=== PATIENT | male | born 1960 | race Caucasian/White ===

== ENCOUNTER 2023-04-25 20:42 | Emergency (ER) | payer OTHER, SELFPAY ==
[2023-04-25 20:45] VITALS: BP 99/68; PULSE 83; RESP 24; TEMP 36.3; O2SAT 98; BMI 20.9
--- NOTE | 2023-04-25 20:58 | XR_ITS ---
The [address] [address] Patient Name: MARIANNA HEALY MRN: [id number] date: 1960 Sex: M Assigned Patient Location: ER Current Patient Location: ER Accession/Order Number: [id number] Exam Date: 04/25/2023 21:40 Report Date: 04/25/2023 22:10 At the request of: MARKELL VENTURA Procedure: XR chest 1V Delete EXAMINATION:XR chest 1V INDICATION:hypoxemia COMPARISON:06/07/2021 TECHNIQUE:A single frontal view of the chest is submitted. FINDINGS: The cardiac silhouette is enlarged. A left-sided pacemaker is in place. There is a right-sided vascular line present with the tip overlying the cavoatrial junction. The pulmonary vascularity is within normal limits. There are small bilateral pleural effusions. There is nonspecific airspace density in the right perihilar chest which could be sequela to pneumonia. Bibasilar airspace opacities are also present which may be atelectasis versus infection. XR/XR chest 1V IMPRESSION: Small bilateral pleural effusions with adjacent airspace opacities possibly representing atelectasis versus infection. There is another patchy density in the right perihilar chest which could be due to infection. Electronically authenticated by: JAZMINE SHAH Date: 04/25/2023 22:10
[2023-04-25 20:59] VITALS: PULSE 80
--- NOTE | 2023-04-25 20:59 | CT_ITS ---
[place] [id number] Patient Name: MARIANNA HEALY MRN: [id number] date: 1960 Sex: M Assigned Patient Location: ER Current Patient Location: ER Accession/Order Number: [id number] Exam Date: 04/25/2023 21:40 Report Date: 04/25/2023 22:12 At the request of: MARKELL VENTURA Procedure: CT abdomen pelvis wo con EXAMINATION: CT abdomen pelvis wo con, 04/25/2023 6:40 PM PST HISTORY: abdominal wall ecchymosis COMPARISON: None. TECHNIQUE: CT scan of the abdomen and pelvis was performed without IV contrast. CT dose reduction technique was used, including Automated Exposure Control. FINDINGS: Lung: Moderate right pleural effusion. Small left pleural effusion. Questionable appearance of the lung bases. Consolidative opacities throughout the right middle lobe, lingula, bilateral lower lobes. Cardiomegaly. Cardiac leads. Liver: No significant finding. Gallbladder: No significant finding. Spleen: No significant finding. Pancreas: No significant finding. Adrenal glands: No significant finding. Kidneys, ureters and bladder: Bladder is distended with a trabeculated appearance. Bowel: No evidence of bowel obstruction. Colonic diverticulosis without diverticulitis. Normal appendix. Peritoneum/retroperitoneum: Mesenteric edema and small amount of free fluid in the pelvis. Lymph nodes: No significant finding. Vessels: Moderate scattered atherosclerotic calcification. Body wall: All body wall edema. Reproductive: No significant finding. Bones: Right proximal femur enchondroma without aggressive features. CT/CT abdomen pelvis wo con IMPRESSION: Consolidative opacities throughout the right middle lobe, lingula and bilateral lower lobes, presumably multifocal pneumonia. Follow-up to resolution. Fluid third spacing/anasarca. Body wall edema, mesenteric edema, small amount of free peritoneal fluid, moderate right and small left pleural effusions. Distended bladder with an appearance suggesting chronic outlet obstruction. Electronically authenticated by: LUCIO CHUNG Date: 04/25/2023 22:12
--- NOTE | 2023-04-25 21:02 | ED_ITS ---
HPI - General Adult General Chief complaint: Shortness of Breath/Dyspnea Stated complaint: SHORTNESS OF BREATH Time Seen by Provider: 04/25/23 20:42 Source: patient Source information: EMS and senior living Mode of arrival: ambulance Limitations: no limitations History of Present Illness HPI narrative: patient transferred from [facility] for hypoxia. senior living reports pulse ox 78% RA. senior living states he was at [facility] earlier today and diagnosed with aspiration pneumonia. He is a hemodialysis patient. Has central line right subclavian for dialysis use. He is frail but awake and alert. Arrives via [facility] with 2LNC 02 and sat 98%. No respiratory distress. Appears very weak and frail has ecchymosis bilat lower abdominal wall. He was not aware of this. States receiving dialysis now for past month and believes he had it today but is not sure. No fever or chest pain. No complaint of abdominal pain Related Data Home Medications Medication Instructions Recorded Confirmed amiodarone 200 mg tablet 200 mg PO DAILY 04/25/23 04/25/23 apixaban 5 mg tablet (Eliquis) 5 mg PO Q12H 04/25/23 04/25/23 bisacodyl 10 mg rectal suppository 10 mg AL DAILY PRN constipation 04/25/23 04/25/23 (OneLAX Bisacodyl) lactulose 10 gram/15 mL oral 45 ml PO BID 04/25/23 04/25/23 solution midodrine 10 mg tablet 10 mg PO TID 04/25/23 04/25/23 prednisolone 15 mg/5 mL oral 15 mg PO DAILY 04/25/23 04/25/23 solution sennosides 8.6 mg-docusate sodium 2 tab-cap PO DAILY PRN constipation 04/25/23 04/25/23 50 mg tablet (2-in-1 Laxative) sodium chloride 1 gram tablet 1,000 mg PO BID 04/25/23 04/25/23 thiamine HCl (vitamin B1) 100 mg 100 mg PO DAILY 04/25/23 04/25/23 tablet Allergies Allergy/AdvReac Type Severity Reaction Status Date / Time lorazepam [From Ativan] Allergy Unknown Verified 04/26/23 01:35 Review of Systems ROS Status of ROS 10 or more systems reviewed and unremark able except as noted in history and below PFSH PFSH Social History Smoking status: Former smoker Exam Constitutional Vital Signs, click to edit/add: Last Vital Signs Temp 97.4 F L 04/25/23 20:45 Pulse 70 04/26/23 01:06 Resp 24 04/26/23 01:06 BP 94/63 04/26/23 01:06 Pulse Ox 100 04/26/23 01:06 O2 Del Method Nasal Cannula 04/26/23 01:06 O2 Flow Rate 2 04/26/23 01:06 Common normals: oriented x3 General appearance: frail appearing Other: edema bilat lower extremities and bilat upper extremities. appears jaundiced Eye Common normals: EOMs intact bilaterally Other: icteric conjunctiva Respiratory Common normals: normal respiratory effort, no retractions, no use of accessory muscles and clear to auscultation bilaterally Cardio Common normals: regular rate, regular rhythm, S1 normal heart sound and S2 normal heart sound GI Other: soft. ecchymosis bilat lower quads Extremity Other: 2+ edema bilat lower ext. 1+ edema left arm-wose at elbow and trace to 1+ edema RUE Neuro Common normals: oriented x3 and moves all extremities Psych Appearance: grossly normal Course Vital Signs Vital signs: Vital Signs Temperature 97.4 F L 04/25/23 20:45 Pulse Rate 83 04/25/23 20:45 Respiratory Rate 24 04/25/23 20:45 Blood Pressure 99/68 04/25/23 20:45 Pulse Oximetry 98 04/25/23 20:45 Oxygen Delivery Method Nasal Cannula 04/25/23 20:45 Oxygen Delivery Flow Rate 2 04/25/23 20:45 Temperature 97.4 F L 04/25/23 20:45 Pulse Rate 70 04/26/23 01:06 Respiratory Rate 24 04/26/23 01:06 Blood Pressure 94/63 04/26/23 01:06 Pulse Oximetry 100 04/26/23 01:06 Oxygen Delivery Method Nasal Cannula 04/26/23 01:06 Oxygen Delivery Flow Rate 2 04/26/23 01:06 Medical Decision Making [facility] Narrative Medical decision making narrative: hemodialysis patient presents with hypoxia from [facility]. Noticed on exam that he was also Jaundiced. Reportedly had dialysis Monday. Arrives with 2L NC and pulse ox 96%. No respiratory distress. Has anasarca. Also found to have ecchymosis of his bilat lower abdominal wall without clear etiology. CT ordered and demonstrated mod. right pleural effusion. Consolidative opacities throughout the right middle lobe, ligula and bilat. lower lobes.. Labs demonstrate coagulopathy with INR 1.67. He is jaundiced and T. bili is 11.1. CT without finding of bile duct etc obstruction. Albumin 2.0. discussed with GI, Nephrology and hospitalist at [facility] in [place] and patient is accepted for admission Lab Data Labs: Lab Results 04/25/23 Range/Units 21:05 WBC 13.0 H (4.0-11.0) 10^3/uL RBC 3.48 L (4.70-6.10) 10^6/uL Hgb 11.3 L (14.0-18.0) g/dL Hct 33.9 L (42.0-54.0) % MCV 97.4 H (80.0-94.0) fL MCH 32.5 (25.9-34.0) pg MCHC 33.3 (29.9-35.2) g/dL RDW 24.0 H (11.0-15.0) % Plt Count 149 L (150-450) 10^3/uL MPV 10.7 (9.5-13.5) fL Neut % (Auto) 89.2 H (43.0-75.0) % Lymph % (Auto) 3.3 L (20.5-60.0) % Bennett % (Auto) 6.3 (1.7-12.0) % Eos % (Auto) 0.0 L (0.9-7.0) % Baso % (Auto) 0.1 L (0.2-2.0) % Neut # (Auto) 11.6 H (1.4-6.5) 10^3/uL Lymph # (Auto) 0.4 L (1.2-3.8) 10^3/uL Bennett # (Auto) 0.8 (0.3-0.8) 10^3/uL Eos # (Auto) 0.0 (0.0-0.7) 10^3/uL Baso # (Auto) 0.0 (0.0-0.1) 10^3/uL Abs Immat Gran (auto) 0.14 H (0.00-0.03) 10^3/uL Imm/Tot Granulo (auto) 1.1 H (0.0-0.5) % PT 17.2 H (9.0-11.6) sec INR 1.67 Sodium 127 L (136-145) mmol/L Potassium 4.5 (3.5-5.1) mmol/L Chloride 94 L (98-107) mmol/L Carbon Dioxide 21.5 (21.0-32.0) mmol/L Anion Gap 16.0 BUN 47.0 H (7.0-18.0) mg/dL Creatinine 3.09 H (0.70-1.30) mg/dL Est GFR ( Amer) 25 L (>=60) Est GFR (Non-Af Amer) 21 L (>=60) BUN/Creatinine Ratio 15.2 Glucose 108 H (74-106) mg/dL Calcium 8.5 (8.5-10.1) mg/dL Total Bilirubin 11.1 H (0.2-1.0) mg/dL AST 70 H (15-37) U/L ALT 92 H (16-63) U/L Alkaline Phosphatase 204 H (46-116) U/L Troponin I High Sens 48.2 (4.0-76.1) pg/mL Total Protein 6.5 (6.4-8.2) g/dL Albumin 2.0 L (3.4-5.0) g/dL Globulin 4.5 g/dL Albumin/Globulin Ratio 0.4 Critical Care Time Critical Care Time Total Critical Care Time: 40 Discharge Plan Discharge Chief Complaint: Shortness of Breath/Dyspnea Clinical Impression: Coagulopathy, Jaundice, Bilateral pneumonia, Pleural effusion, right Patient Disposition: [facility]
--- NOTE | 2023-04-25 21:08 | ECG_ITS ---
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
[2023-04-25 21:19] LABS: Basophils Percent Auto 0.1 % (0.2-2.0); Hematocrit 33.9 % (42.0-54.0); Hemoglobin 11.3 g/dL (14.0-18.0); Immature Granulocytes Abs Auto 0.14 10^3/uL (0.00-0.03); Immature Granulocytes Pct Auto 1.1 % (0.0-0.5); Lymphocytes Absolute Auto 0.4 10^3/uL (1.2-3.8); Lymphocytes Percent Auto 3.3 % (20.5-60.0); Mean Corpuscular HGB Conc 33.3 g/dL (29.9-35.2); Mean Corpuscular Hemoglobin 32.5 pg (25.9-34.0); Mean Corpuscular Volume 97.4 fL (80.0-94.0); Mean Platelet Volume 10.7 fL (9.5-13.5); Monocytes Absolute Auto 0.8 10^3/uL (0.3-0.8); Monocytes Percent Auto 6.3 % (1.7-12.0); Neutrophils Absolute Auto 11.6 10^3/uL (1.4-6.5); Neutrophils Percent Auto 89.2 % (43.0-75.0); Platelet Count 149 10^3/uL (150-450); Red Blood Count 3.48 10^6/uL (4.70-6.10)
--- NOTE | 2023-04-25 21:23 | PC.NURSE ---
Jaundice noted, mottling to area of knee's with pitting edema and bruising scattered throughout. Large amount of bruising noted low abdomen
[2023-04-25 21:34] LABS: Alanine Aminotransferase 92 U/L (16-63); Albumin Globulin Ratio 0.4; Alkaline Phosphatase 204 U/L (46-116); Aspartate Amino Transferase 70 U/L (15-37); BUN Creatinine Ratio 15.2; Bilirubin Total 11.1 mg/dL (0.2-1.0); Calcium 8.5 mg/dL (8.5-10.1); Carbon Dioxide 21.5 mmol/L (21.0-32.0); Chloride 94 mmol/L (98-107); Estimated GFR (African America 25 (>=60); Estimated GFR (Non-African Ame 21 (>=60); Globulin 4.5 g/dL; Glucose 108 mg/dL (74-106); INR 1.67; Potassium 4.5 mmol/L (3.5-5.1); Prothrombin Time 17.2 sec (9.0-11.6); Sodium 127 mmol/L (136-145); Total Protein 6.5 g/dL (6.4-8.2)
[2023-04-25 21:36] LABS: Troponin I High Sensitivity 48.2 pg/mL (4.0-76.1)
[2023-04-25 22:38] VITALS: BP 97/67; PULSE 78; RESP 20; O2SAT 100
[2023-04-26] MEDS: 0.9 % SODIUM CHLORIDE 1,000 ML 100 ML IV (00:16)
[2023-04-26 00:30] VITALS: BP 89/67; PULSE 72; RESP 20; O2SAT 100
[2023-04-26] MEDS: PIPERACILLIN SODIUM/TAZOBACTAM 3.375 GM in 0.9 % SODIUM CHLORIDE 50 ML IV (00:30)
[2023-04-26] MEDS: VANCOMYCIN HCL 1,000 MG in 0.9 % SODIUM CHLORIDE 250 ML 250 MG IV (01:00)
[2023-04-26 01:06] VITALS: BP 94/63; PULSE 70; RESP 24; O2SAT 100
[2023-04-26 01:55] LABS: Adenovirus NOT DETECTED (NOT DETECTE); Bordetella parapertussis NOT DETECTED (NOT DETECTE); Coronavirus 229E NOT DETECTED (NOT DETECTE); Coronavirus HKU1 NOT DETECTED (NOT DETECTE); Coronavirus NL63 NOT DETECTED (NOT DETECTE); Coronavirus OC43 NOT DETECTED (NOT DETECTE); Human Metapneumovirus NOT DETECTED (NOT DETECTE); Human Rhinovirus/Enterovirus NOT DETECTED (NOT DETECTE); Influenza A NOT DETECTED (NOT DETECTE); Influenza B NOT DETECTED (NOT DETECTE); Mycoplasma pneumoniae NOT DETECTED (NOT DETECTE); Parainfluenza Virus 1 NOT DETECTED (NOT DETECTE); Parainfluenza Virus 2 NOT DETECTED (NOT DETECTE); Parainfluenza Virus 3 NOT DETECTED (NOT DETECTE); Parainfluenza Virus 4 NOT DETECTED (NOT DETECTE); Respiratory Syncytial Virus NOT DETECTED (NOT DETECTE); SARS-CoV-2 NOT DETECTED (NOT DETECTE)
[2023-04-26 02:05] VITALS: BP 92/65; PULSE 79; RESP 24; O2SAT 100
--- NOTE | 2023-04-26 04:03 | PC.NURSE ---
Report to Hussain at [phone]
== END 2023-04-26 04:05 | disposition short-term general hospital (02) ==
PROVIDERS: Emergency Provider Internal Medicine; PCP Internal Medicine
DX: J18.9 Pneumonia, unspecified organism (principal); R17 Unspecified jaundice; D68.9 Coagulation defect, unspecified; J90 Pleural effusion, not elsewhere classified; Z99.2 Dependence on renal dialysis; Z79.899 Other long term (current) drug therapy; Z87.891 Personal history of nicotine dependence
CPT/HCPCS: 0202U; 36415; 71045; 74176; 80053; 84484; 85025; 85610; 87040; 93005; 96365; 96367; 99285; J3370